=== PATIENT | female | born 1950 | race Caucasian/White ===

== ENCOUNTER → 2016-11-30 | Outpatient (CLI) | payer MEDICARE, BC, MEDICAID ==
[~2016-11-30] MED LIST: ABILIFY2 MG PO; ALDACTONE 25MG25 M1 PO; ASPI325T6 PO; ASPIRIN 81M81 MG/TA2 PO; BELVIQ PO; CINNAMON500 MG PO; COLACE 100100 MG/CAP PO; COREG 25MG25 MG/TAB PO; FERROUS SU325 MG/TAB PO; FISH OIL1000 MG PO; FOLIC ACID0.4 MG PO; HUMALOG100 U/ML SQ; HYZAAR 25 MG-101 TAB PO; K-DUR 10 MEQ T10 MEQ PO; KLONOPIN 0.5MG0.5 MG PO; KLOR-CON 1010 MEQ PO; LASIX 20MG TABL20 MG PO; LEVEMIR100 U/ML SQ; LIPITOR 40MG TA40 MG PO; LIPITOR 80MG80 MG PO; LOMOTIL 0.025 M1 TAB PO; MASON NATURAL600 MG PO; NATURE'S BLEND600 M2 PO; NITRO-DUR0.2 MG/PAT TD; NITRO-DUR0.4 MG/PAT TD; NITROSTAT0.4 MG/TAB SL; NORCO 325 MG-51 TAB PO; NORCO 325 MG-7.1 TAB PO; PRISTIQ100 MG PO; ROXICODONE 55 MG/TAB PO; SENOKOT S 50 MG1 TAB PO; TYLENOL 500MG500 MG PO; VICTOZA6 MG/ML SQ; VITAMIN B-1000 MCG/T PO; VITAMIN C500 MG PO; ZOCOR 40MG40 MG PO
== END ==
LOC: COL.RAD 12:32
DX: M48.56XA Collapsed vertebra, not elsewhere classified, lumbar region, initial encounter for fracture (principal); M43.16 Spondylolisthesis, lumbar region

== ENCOUNTER 2016-12-08 11:47 | Outpatient (CLI) | payer MEDICARE, BC, MEDICAID ==
[~2016-12-08] VITALS: Ht 149.9 cm; Wt 73.0 kg
[2016-12-08] VITALS (9 sets, daily range): BP systolic 115–155; BP diastolic 53–95; PULSE 72–119; TEMP 98.3
[~2016-12-08 11:47] MED LIST changes: -K-DUR 10 MEQ T10 MEQ PO; -NORCO 325 MG-51 TAB PO
[2016-12-08] MEDS ORDERED: K-DUR 10 MEQ T10 MEQ PO (14:21)
[2016-12-08] MEDS ORDERED: NORCO 325 MG-51 TAB PO (14:22)
== END 2016-12-08 19:27 | disposition home or self-care (01) ==
LOC: COL.RAD 11:47
DX: M48.56XG Collapsed vertebra, not elsewhere classified, lumbar region, subsequent encounter for fracture with delayed healing (principal)
CPT/HCPCS: J2250; J3010; J7120

== ENCOUNTER 2017-07-24 07:56 | Inpatient (IN) | payer MEDICARE, BC, MEDICAID ==
[~2017-07-24] VITALS: Ht 149.9 cm; Wt 85.6 kg
[2017-07-24] VITALS (322 sets, daily range): BP systolic 129–156; BP diastolic 47–87; PULSE 67–87; TEMP 97.2–97.7; O2SAT 93–100
[~2017-07-24 07:56] MED LIST changes: +K-DUR 10 MEQ T10 MEQ PO; +NORCO 325 MG-51 TAB PO
[2017-07-24 08:59] LABS: HEMOGLOBIN 12.8 g/dl (12.5-16.0); MEAN CELL VOLUME 96 fl (80.0-100.0); MEAN CORPUSCULAR HEMOGLOBIN 31 pg (27.0-31.0); MEAN CORPUSCULAR HGB CONC 33 g/dl (33.0-37.0); MEAN PLATELET VOLUME 10.3 fl (7.4-10.4); PLATELET COUNT 201 K/mm3 (130-400); RED BLOOD COUNT 4.08 M/mm3 (4.10-5.30); REDCELL DISTRIBUTION WIDTH-CV 13.6 % (11.5-14.5)
[2017-07-24 09:11] LABS: PROTHROMBIN TIME 10.6 SECONDS (9.7-12.8)
[2017-07-24 09:12] LABS: CALCIUM 9.4 mg/dL (8.4-10.2); CREATININE, serum 0.84 mg/dL (0.52-1.25); POTASSIUM 4.2 mmol/L (3.4-5.0)
[2017-07-24] MEDS ORDERED: FOSAMAX 70MG TA70 MG PO (09:13)
[2017-07-24] MEDS ORDERED: ABILIFY5 MG PO (09:14)
[2017-07-24] MEDS ORDERED: ASPIRIN E.C. 8181 MG PO (09:14)
[2017-07-24] MEDS ORDERED: CALCIUM 600-D 61 TAB PO (09:15)
[2017-07-24] MEDS ORDERED: COZAAR100 MG PO (09:19)
[2017-07-24] MEDS ORDERED: TRESIBA FL100 UNIT/1 SQ (09:24)
[2017-07-24] MEDS ORDERED: NOVOLOG 100U100 U/M1 SQ ×4 (09:26→09:30)
[2017-07-25 00:38] VITALS: BP 136/74; PULSE 87; TEMP 97.6
[2017-07-25 01:58] VITALS: BP 129/84; PULSE 77; TEMP 98.2
[2017-07-25 04:03] VITALS: BP 129/84; PULSE 77; TEMP 98.2
[2017-07-25 06:40] VITALS: BP 131/62; PULSE 80; TEMP 98
[2017-07-25 07:12] LABS: BASO % 0.6 % (0.0-2.0); EOS # 0.2 (0.0-0.7); EOS % 2.8 % (0-4.0); GRAN % 69.6 % (42.2-75.2); HEMATOCRIT 39.2 % (37.0-47.0); LYMPH # 1.4 (1.2-3.4); LYMPH % 19.4 % (20.0-51.0); MEAN CELL VOLUME 94 fl (80.0-100.0); MEAN CORPUSCULAR HEMOGLOBIN 31 pg (27.0-31.0); MEAN CORPUSCULAR HGB CONC 33 g/dl (33.0-37.0); MEAN PLATELET VOLUME 10.6 fl (7.4-10.4); MONO # 0.5 (0.1-0.6); MONO % 7.2 % (1.7-9.3); PLATELET COUNT 198 K/mm3 (130-400); RED BLOOD COUNT 4.19 M/mm3 (4.10-5.30); REDCELL DISTRIBUTION WIDTH-CV 13.4 % (11.5-14.5); WHITE BLOOD COUNT 7.2 K/mm3 (4.8-10.8)
[2017-07-25 07:21] LABS: CALCIUM 8.9 mg/dL (8.4-10.2); CREATININE, serum 0.86 mg/dL (0.52-1.25)
[2017-07-25 08:00] VITALS: BP 136/72; PULSE 84; TEMP 95
[2017-07-25 09:38] VITALS: BP 136/72; PULSE 84; TEMP 98.3
[2017-07-25] MEDS ORDERED: BRILINTA90 MG PO (12:41)
== END 2017-07-25 13:30 | disposition home or self-care (01) | DRG 247 ==
LOC: COL.CAR 07:56 → ICU 11:45 → SURG 22:00 → COL.CAR 22:03 → SURG 22:04 → ICU 22:04 → SURG 22:30
PROVIDERS: Internal Medicine Cardiovascular Disease
PROC: B2111ZZ Fluoroscopy of Multiple Coronary Arteries using Low Osmolar Contrast (ICD-10-PCS; principal; 2017-07-24)
PROC: 027034Z Dilation of Coronary Artery, One Artery with Drug-eluting Intraluminal Device, Percutaneous Approach (ICD-10-PCS; 2017-07-24)
PROC: 02703ZZ Dilation of Coronary Artery, One Artery, Percutaneous Approach (ICD-10-PCS; 2017-07-24)
PROC: B2151ZZ Fluoroscopy of Left Heart using Low Osmolar Contrast (ICD-10-PCS; 2017-07-24)
PROC: 4A023N6 Measurement of Cardiac Sampling and Pressure, Right Heart, Percutaneous Approach (ICD-10-PCS; 2017-07-24)
PROC: 4A033BC Measurement of Arterial Pressure, Coronary, Percutaneous Approach (ICD-10-PCS; 2017-07-24)
DX: I25.10 Atherosclerotic heart disease of native coronary artery without angina pectoris (principal); I34.0 Nonrheumatic mitral (valve) insufficiency; I42.0 Dilated cardiomyopathy; I10 Essential (primary) hypertension; E11.9 Type 2 diabetes mellitus without complications; Z79.4 Long term (current) use of insulin
CPT/HCPCS: C1725; C1760; C1769; C1874; C1887; C1894; C9600; J0153; J1644; J1815; J2250; J3010; Q9967

== ENCOUNTER 2018-07-31 08:09 | Day surgery (SDC) | payer MEDICARE, BC, MEDICAID ==
[2018-07-31] VITALS (12 sets, daily range): BP systolic 103–142; BP diastolic 52–69; PULSE 68–85; TEMP 97.7
[~2018-07-31] VITALS: Ht 149.9 cm; Wt 89.0 kg
[~2018-07-31 08:09] MED LIST changes: +ABILIFY5 MG PO; +ASPIRIN E.C. 8181 MG PO; +BRILINTA90 MG PO; +CALCIUM 600-D 61 TAB PO; +COZAAR100 MG PO; +FOSAMAX 70MG TA70 MG PO; +NOVOLOG 100U100 U/M1 SQ; +TRESIBA FL100 UNIT/1 SQ
[2018-07-31] MEDS ORDERED: PLAVIX 75MG TAB75 MG PO (08:34)
[2018-07-31] MEDS ORDERED: NORCO 325 MG-51 TAB PO (08:35)
[2018-07-31] MEDS ORDERED: NITRO-DUR0.4 MG/PAT TD (08:36)
[2018-07-31] MEDS ORDERED: PROBIOTIC ACID1 EAC3 PO (08:37)
[2018-07-31] MEDS ORDERED: THEO-DUR 3300 MG/TAB PO (08:37)
[2018-07-31] MEDS ORDERED: TRESIBA FL200 UNIT/1 SQ (08:38)
[2018-07-31 08:55] LABS: HEMATOCRIT 38.3 % (37.0-47.0); HEMOGLOBIN 12.7 g/dl (12.5-16.0); MEAN CELL VOLUME 93 fl (80.0-100.0); MEAN CORPUSCULAR HEMOGLOBIN 31 pg (27.0-31.0); MEAN CORPUSCULAR HGB CONC 33 g/dl (33.0-37.0); MEAN PLATELET VOLUME 10.4 fl (7.4-10.4); PLATELET COUNT 214 K/mm3 (130-400); RED BLOOD COUNT 4.12 M/mm3 (4.10-5.30); REDCELL DISTRIBUTION WIDTH-CV 14.3 % (11.5-14.5)
[2018-07-31 08:59] LABS: INR 0.9 (0.8-3.0); PROTHROMBIN TIME 10.7 SECONDS (9.7-12.8)
[2018-07-31 09:06] LABS: CALCIUM 9.3 mg/dL (8.4-10.2); CREATININE, serum 0.92 mg/dL (0.52-1.25)
[2018-07-31] MEDS ORDERED: IMDUR 60MG60 MG/TAB PO (10:57)
== END 2018-07-31 16:08 | disposition home or self-care (01) ==
LOC: COL.CAR 08:09
PROVIDERS: Internal Medicine Cardiovascular Disease
DX: I25.10 Atherosclerotic heart disease of native coronary artery without angina pectoris (principal); T82.855A Stenosis of coronary artery stent, initial encounter; I25.5 Ischemic cardiomyopathy; I44.7 Left bundle-branch block, unspecified; I10 Essential (primary) hypertension; E78.5 Hyperlipidemia, unspecified; E11.9 Type 2 diabetes mellitus without complications; Z79.4 Long term (current) use of insulin; E66.9 Obesity, unspecified; Z79.899 Other long term (current) drug therapy; Z95.5 Presence of coronary angioplasty implant and graft; Z79.82 Long term (current) use of aspirin; F41.9 Anxiety disorder, unspecified; Z82.49 Family history of ischemic heart disease and other diseases of the circulatory system
CPT/HCPCS: J1644; J2250; J3010; Q9967

== ENCOUNTER 2021-02-28 09:23 | Day surgery (SDC) | payer MEDICARE, BC, MEDICAID ==
[~2021-02-28] VITALS: Ht 149.9 cm; Wt 91.2 kg
[2021-02-28] VITALS (11 sets, daily range): BP systolic 115–140; BP diastolic 62–85; PULSE 67–80; TEMP 98.3
[~2021-02-28 09:23] MED LIST changes: +IMDUR 60MG60 MG/TAB PO; +PLAVIX 75MG TAB75 MG PO; +PROBIOTIC ACID1 EAC3 PO; +THEO-DUR 3300 MG/TAB PO; +TRESIBA FL200 UNIT/1 SQ
[2021-02-28 10:10] LABS: HEMATOCRIT 44.9 % (37.0-47.0); HEMOGLOBIN 14.5 g/dl (12.5-16.0); MEAN CELL VOLUME 93 fl (80.0-100.0); MEAN CORPUSCULAR HEMOGLOBIN 30 pg (27.0-31.0); MEAN CORPUSCULAR HGB CONC 32 g/dl (33.0-37.0); PLATELET COUNT 246 K/mm3 (130-400); RED BLOOD COUNT 4.82 M/mm3 (4.10-5.30); REDCELL DISTRIBUTION WIDTH-CV 15.5 % (11.5-14.5)
[2021-02-28 10:18] LABS: CREATININE, serum 0.98 (0.52-1.25); POTASSIUM 4.1 mmol/L (3.4-5.0)
[2021-02-28] MEDS ORDERED: IMDUR 60MG60 MG/TAB PO (10:20)
[2021-02-28] MEDS ORDERED: PROAIR HFA0.09 MG/AC IH (10:21)
[2021-02-28] MEDS ORDERED: K-DUR20 MEQ PO (10:33)
[2021-02-28] MEDS ORDERED: ACIDOPHILIS PO (10:34)
[2021-02-28 11:23] LABS: PROTHROMBIN TIME 11.5 SECONDS (9.7-12.8)
[2021-02-28 11:25] LABS: PARTIAL THROMBOPLASTIN TIME 29.9 SECONDS (26.0-37.0)
--- NOTE | 2021-02-28 12:30 | NUR ---
Report from Katie TRUONG. Transferred by bed from cardiac cath technologist. Alert and oriented, denies pain and needs at this time. Right groin site CD&I, soft to palpation and pedal pulses palpable. Right Tband with 11 cc air CD&I, good pulses and cap refill < 3 secs noted. wilma Shay, is bedside.
[2021-02-28] MEDS ORDERED: ENTRESTO 24 MG1 EACH PO (15:46)
--- NOTE | 2021-02-28 16:15 | NUR ---
Right Tband released of 11 cc air and dressing applied. INT discontinued intact. Right groin site soft to palpation after ambulating to bathroom and back.
--- NOTE | 2021-02-28 16:30 | NUR ---
Discharge instructions given. Transferred to private car by nicolette
== END 2021-02-28 16:53 | disposition home or self-care (01) ==
LOC: COL.CAR 09:23
PROVIDERS: Internal Medicine Cardiovascular Disease
DX: I27.20 Pulmonary hypertension, unspecified (principal); I42.9 Cardiomyopathy, unspecified; R94.39 Abnormal result of other cardiovascular function study; R06.02 Shortness of breath; I20.0 Unstable angina; I25.2 Old myocardial infarction; I44.7 Left bundle-branch block, unspecified; I10 Essential (primary) hypertension; E78.5 Hyperlipidemia, unspecified; E11.9 Type 2 diabetes mellitus without complications; E66.9 Obesity, unspecified; M19.90 Unspecified osteoarthritis, unspecified site; Z88.0 Allergy status to penicillin; Z20.822 Contact with and (suspected) exposure to COVID-19
CPT/HCPCS: C1760; C1769; C1894; J1644; J2250; J3010; Q9967

== ENCOUNTER 2021-08-04 06:59 | Day surgery (SDC) | payer MEDICARE, BC, MEDICAID ==
[2021-08-04] VITALS (8 sets, daily range): BP systolic 101–112; BP diastolic 45–58; PULSE 42–88; TEMP 97.7–98.3
[~2021-08-04] VITALS: Ht 152.4 cm; Wt 93.9 kg
[~2021-08-04 06:59] MED LIST changes: +ACIDOPHILIS PO; +ENTRESTO 24 MG1 EACH PO; +K-DUR20 MEQ PO; +PROAIR HFA0.09 MG/AC IH
[2021-08-04 08:28] LABS: HEMATOCRIT 41.9 % (37.0-47.0); HEMOGLOBIN 13.6 g/dl (12.5-16.0); MEAN CELL VOLUME 95 fl (80.0-100.0); MEAN CORPUSCULAR HEMOGLOBIN 31 pg (27.0-31.0); MEAN CORPUSCULAR HGB CONC 33 g/dl (33.0-37.0); PLATELET COUNT 215 K/mm3 (130-400); RED BLOOD COUNT 4.43 M/mm3 (4.10-5.30); REDCELL DISTRIBUTION WIDTH-CV 14.1 % (11.5-14.5)
[2021-08-04 08:37] LABS: PROTHROMBIN TIME 11.2 SECONDS (9.7-12.8)
[2021-08-04 08:51] LABS: CALCIUM 9.1 mg/dL (8.4-10.2); POTASSIUM 3.7 mmol/L (3.5-4.5)
[2021-08-04] MEDS ORDERED: ABILIFY 10MG TA10 MG PO (09:10)
[2021-08-04] MEDS ORDERED: CELEBREX 200MG200 MG PO (09:12)
[2021-08-04] MEDS ORDERED: ENTRESTO 24 MG1 EACH PO (09:13)
[2021-08-04] MEDS ORDERED: IMDUR 60MG60 MG/TAB PO (09:14)
[2021-08-04] MEDS ORDERED: JARDIANCE25 PO (09:15)
[2021-08-04] MEDS ORDERED: OZEMPIC1 MG/0.75 SQ (09:38)
--- NOTE | 2021-08-04 10:30 | NUR ---
Pt to procedure at this time.
--- NOTE | 2021-08-04 12:30 | NUR ---
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
--- NOTE | 2021-08-04 21:00 | NUR ---
Patient is resting in bed, alert and oriented x 4, VSS, no nausea, vomiting or pain. Tele in place, NSR. Assessment completed, meds provided, no further needs at this time, call light within reach.
[2021-08-05] VITALS (11 sets, daily range): BP systolic 91–111; BP diastolic 41–60; PULSE 81–90; TEMP 98–98.6
--- NOTE | 2021-08-05 01:37 | NUR ---
Critical care called to report short episode of VTAQ in patient. She was sleeping, VSS, Dr. Luis notified. Continue monitoring.
--- NOTE | 2021-08-05 07:05 | NUR ---
Patient did not have another heart event. According to critical care she valles 5 junctional beats and 7 vtac for aprox 6 sec. Patient did not feel anything. She was sleeping and VSS have been stable. Shift report given to day nurse.
[2021-08-05 08:30] LABS: BASO # 0.1 K/mm3 (0.0-0.2); BASO % 1.1 % (0.0-2.0); EOS # 0.3 K/mm3 (0.0-0.7); EOS % 3.5 % (0-4.0); GRAN # 4.6 K/mm3 (1.4-6.5); GRAN % 62.1 % (42.2-75.2); HEMATOCRIT 37.8 % (37.0-47.0); LYMPH # 1.8 K/mm3 (1.2-3.4); LYMPH % 23.8 % (20.0-51.0); MEAN CELL VOLUME 98 fl (80.0-100.0); MEAN CORPUSCULAR HEMOGLOBIN 31 pg (27.0-31.0); MEAN CORPUSCULAR HGB CONC 32 g/dl (33.0-37.0); MEAN PLATELET VOLUME 10.4 fl (7.4-10.4); MONO # 0.7 K/mm3 (0.1-0.6); MONO % 9.1 % (1.7-9.3); PLATELET COUNT 152 K/mm3 (130-400); RED BLOOD COUNT 3.87 M/mm3 (4.10-5.30); REDCELL DISTRIBUTION WIDTH-CV 14.2 % (11.5-14.5)
--- NOTE | 2021-08-05 08:30 | NUR ---
Patient is going down to supervisor laboratory for ICD testing at this time
[2021-08-05 08:44] LABS: CALCIUM 8.1 mg/dL (8.4-10.2); CREATININE, serum 0.93 mg/dL (0.57-1.11)
--- NOTE | 2021-08-05 10:15 | NUR ---
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
[2021-08-05] MEDS ORDERED: CLEOCIN HCL300 MG PO (10:53)
--- NOTE | 2021-08-05 11:43 | NUR ---
Initial visit; Patient thanked Regional Business Manager for looking in on her and asked that Regional Business Manager keep both her and her friend who is seriously ill in her prayers. Regional Business Manager assured Shadia that she would keep them in her prayers.
--- NOTE | 2021-08-05 11:49 | NUR ---
Patient returned from procedure, administered her morning medications per Erlin TRUONG. Obtained patients vital signs, patient tolerated well. Patient sitting on couch eating lunch.
--- NOTE | 2021-08-05 13:13 | NUR ---
patient is discharging home, dsicussed d/c order with her, isntructed to follow up as scheduled and to take meds as prescirbed, discussed activty restrictions with her LUE/ and incision site cares and restrictions, IV and tele removed, she is leaving with her , I will escort them out the door
--- NOTE | 2021-08-05 13:56 | NUR ---
Primary nurse was assisted with [id number] patient care by [employer] [employer] [facility] Donna Nolasco and [employer] instructor Jennyfer Jimenez MSN, RN
== END 2021-08-05 13:23 | disposition home or self-care (01) ==
LOC: COL.CAR 06:59 → MEDICAL 13:09 → COL.CAR 08-05 13:23
PROVIDERS: Internal Medicine Cardiovascular Disease
DX: I25.5 Ischemic cardiomyopathy (principal); Z45.010 Encounter for checking and testing of cardiac pacemaker pulse generator [battery]; I50.22 Chronic systolic (congestive) heart failure; I44.7 Left bundle-branch block, unspecified; I25.10 Atherosclerotic heart disease of native coronary artery without angina pectoris; I25.2 Old myocardial infarction; I11.0 Hypertensive heart disease with heart failure; E78.5 Hyperlipidemia, unspecified; E11.9 Type 2 diabetes mellitus without complications; E66.9 Obesity, unspecified; M19.90 Unspecified osteoarthritis, unspecified site; M54.9 Dorsalgia, unspecified; I27.20 Pulmonary hypertension, unspecified; F41.9 Anxiety disorder, unspecified; Z79.899 Other long term (current) drug therapy; Z79.82 Long term (current) use of aspirin; Z79.02 Long term (current) use of antithrombotics/antiplatelets
CPT/HCPCS: OP; C1769; C1777; C1882; C1894; C1898; C1900; J1815; J2250; J2704; J3010; J3370; J7030; J7050; Q9967

== ENCOUNTER 2023-02-20 10:19 | Outpatient (CLI) | payer MEDICARE, BC, MEDICAID ==
[~2023-02-20] VITALS: Ht 152.5 cm; Wt 93.0 kg
[2023-02-20] VITALS (7 sets, daily range): BP systolic 106–118; BP diastolic 53–77; PULSE 55–71; TEMP 97.8
--- NOTE | 2023-02-20 10:05 | NUR ---
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 BS WITH OWN DEVICE AT 188. PT TAKES SNACK, CALL LIGHT IN REACH
[~2023-02-20 10:19] MED LIST changes: +ABILIFY 10MG TA10 MG PO; +CELEBREX 200MG200 MG PO; +CLEOCIN HCL300 MG PO; +JARDIANCE25 PO; +OZEMPIC1 MG/0.75 SQ
--- NOTE | 2023-02-20 11:00 | NUR ---
DR BUNCH INTO SEE PT, CON'T WITH NO PAIN
--- NOTE | 2023-02-20 12:00 | NUR ---
PT SAT ON SIDE OF BED, TOLERATED WELL. UP AND DRESSED WITH ASSIST, CON'T TO STATE IS HAVING NO PAIN, BANDAID TO BACK CLEAN AND DRY. REVIEWED DISCHARGE INST. WITH PT ON MOD SEDATION, ACTIVITY AND CARE OF SITE WITH VERBAL UNDERSTANDING. IV D'CD INTACT. PT DISCHARGED VIA W/C WITH H USBAND TO CAR AT 1215
== END 2023-02-20 12:15 | disposition home or self-care (01) ==
LOC: COL.CAR 10:19
DX: S22.080A Wedge compression fracture of T11-T12 vertebra, initial encounter for closed fracture (principal); X58.XXXA Exposure to other specified factors, initial encounter
CPT/HCPCS: C1713; J2250; J3010

== ENCOUNTER 2024-04-16 10:47 | Outpatient (RCR) | payer MEDICARE, BC, MEDICAID | END 2024-04-20 | disposition home or self-care (01) | LOC: WSST | DX: R94.8 Abnormal results of function studies of other organs and systems (principal) ==

== ENCOUNTER 2024-05-06 14:30 | Outpatient (RCR) | payer MEDICARE, BC, MEDICAID | END 2024-05-21 | disposition home or self-care (01) | LOC: WSST | DX: J38.3 Other diseases of vocal cords (principal) ==